=== PATIENT | female | born 1960 | race Caucasian/White ===

== ENCOUNTER → 2020-10-16 08:27 | Outpatient (BNVA) | payer SELFPAY | PROVIDERS: PCP Registered Nurse; Visit Provider Registered Nurse | DX: R19.7 Diarrhea, unspecified (principal) | CPT/HCPCS: 87493; 87506 ==

== ENCOUNTER 2024-07-26 07:06 | Emergency (ER) | payer OTHER, SELFPAY ==
[2024-07-26 07:24] VITALS: BP 123/79; PULSE 66; RESP 16; TEMP 36.7; O2SAT 98; BMI 21.4
--- NOTE | 2024-07-26 07:33 | ED_ITS ---
HPI - General Adult 2 General: Chief complaint: Skin/Abscess/Foreign Body Stated complaint: swelling/rash face area Time Seen by Provider: 07/26/24 07:08 History of Present Illness: 64 yo female present to the ER with comp laints of facial swelling and rash Associated symptoms: Reports rash; Deny chest pain or dyspnea Related Data Home Medications ?Medication ?Instructions ?Recorded ?Confirmed hydroxyzine HCl 10 mg tablet 10 mg PO Q6H 07/26/24 Previous Rx's ?Medication ?Instructions ?Recorded clindamycin HCl 150 mg capsule 450 mg (3 x 150 mg) PO TID 7 days 07/26/24 #63 caps metronidazole 1 % topical gel 1 applic topical DAILY # 60 grams 07/26/24 Allergies Allergy/AdvReac Type Severity Reaction Status Date / Time No Known Allergies Allergy Verified 07/26/24 07:38 Review of Systems 2 Const: Denies: fever(s) or chills Card: Denies: chest pain Resp: Denies: dyspnea GI: Denies: abdominal pain : Denies: dysuria, urinary frequency or urinary urgency Musc: Denies: neck pain or back pain Skin/Breast: Reports: rash PFSH ED 2 PFSH: Social History Smoking and tobacco/nicotine status: never used tobacco/nicotine Alcohol intake: never Physical Exam 2 Const: GENERAL APPEARANCE: cooperative ORIENTATION/CONSCIOUSNESS: Yes awake, Yes oriented to person, Yes oriented to place and Yes oriented to time HENMT: COMMON NORMALS: normocephalic, atraumatic and hearing grossly normal bilaterally HEAD & SCALP: normocephalic and atraumatic Resp: COMMON NORMALS: normal respiratory effort, No retractions, No use of accessory muscles and clear to auscultation bilaterally AUSCULTATION: clear to auscultation bilaterally Cardio: COMMON NORMALS: regular rate, regular rhythm and No murmurs present (Cardio) RATE: regular rate RHYTHM: regular rhythm Extremity: COMMON NORMALS: normal to inspection, capillary refill normal, no clubbing, cyanosis or edema, no calf tenderness and no pedal edema Neuro: SENSORIUM/ORIENTATION: Yes oriented to person, Yes oriented to place and Yes oriented to time Skin: OTHER: Mild erythema and thickening slight swelling of the skin overlying the mandible that extends into the submandibular space and into the anterior portion of the neck no cervical lymphadenopathy there is normal fluctuant areas no palpable nodules no skin breakdown or drainage. Course 2 Vital Signs: Vital signs: Vital Signs Temperature 98.1 F 07/26/24 07:24 Pulse Rate 66 07/26/24 07:24 Respiratory Rate 16 07/26/24 07:24 Blood Pressure 123/79 07/26/24 07:24 Pulse Oximetry 98 07/26/24 07:24 Oxygen Delivery Me thod Room Air 07/26/24 07:24 MDM - General Adult Medical Decision Making Appears to have erysipelas does not have the typical appearance of rosacea. Patient did mention she had it previously. She has no central component and only covers the area of the chin and is spreading down the neck. No signs of any drainage anywhere will start on clindamycin 450 mg 3 times daily for 5 days also have her apply topical metronidazole if not improving follow-up with her primary care doctor may need referral to Derm. She previously was on Augmentin which I do not think likely had adequate coverage. Medical Records I reviewed the patient's medical records. Lab Data I reviewed the patient's lab results. 07/26/24 08:18 07/26/24 08:18 Laboratory Results WBC 9.62 10^3/uL (3.29-11.43) 07/26/24 08:18 RBC 4.36 10^6/uL (3.85-5.65) 07/26/24 08:18 Hgb 13.20 g/dL (11.27-16.99) 07/26/24 08:18 Hct 40.6 % (36-47) 07/26/24 08:18 MCV 93.1 fl (85-98) 07/26/24 08:18 MCH 30.3 pg (27-33) 07/26/24 08:18 MCHC 32.5 g/dL (30-55) 07/26/24 08:18 RDW 13.1 % (12.1-15.1) 07/26/24 08:18 Plt Count 316 10^3/cmm (157-399) 07/26/24 08:18 MPV 10.2 fL (7.4-10.4) 07/26/24 08:18 Neut % (Auto) 60.2 % 07/26/24 08:18 Lymph % (Auto) 26.6 % 07/26/24 08:18 [place] % (Auto) 6.5 % 07/26/24 08:18 Eos % (Auto) 5.5 % 07/26/24 08:18 Baso % (Auto) 0.5 % 07/26/24 08:18 Neut # (Auto) 5.78 10^3/uL (1.8-7.7) 07/26/24 08:18 Lymph # (Auto) 2.6 10^3/uL (0.8-4.8) 07/26/24 08:18 [place] # (Auto) 0.6 10^3/uL (0.2-0.9) 07/26/24 08:18 Eos # (Auto) 0.5 10^3/uL (0.0-0.8) 07/26/24 08:18 Baso # (Auto) 0.1 10^3/uL (0.0-0.1) 07/26/24 08:18 Nucleated RBC % (auto) 0 % 07/26/24 08:18 Nucleated RBCs # 0.0 /100WBC 07/26/24 08:18 Sodium 139 mmol/L (136-145) 07/26/24 08:18 Potassium 4.4 mmol/L (3.5-5.1) 07/26/24 08:18 Chloride 102 mmol/L (98-107) 07/26/24 08:18 Carbon Dioxide 25 mmol/L (22-29) 07/26/24 08:18 Anion Gap 16.4 (5-19) 07/26/24 08:18 BUN 22 mg/dL (8-23) 07/26/24 08:18 Creatinine 0.5 mg/dL (0.5-0.9) 07/26/24 08:18 GFR Calculation 124.2 mL/min (90-130) 07/26/24 08:18 Glucose 91 mg/dL (65-115) 07/26/24 08:18 Calculated Osmolality 291 mOsm/kg (285-295) 07/26/24 08:18 Calcium 9.5 mg/dL (8.5-10.5) 07/26/24 08:18 Total Bilirubin 0.3 mg/dL (0.15-1.2) 07/26/24 08:18 AST 17 U/L (0-32) 07/26/24 08:18 ALT 23 U/L (0-33) 07/26/24 08:18 Alkaline Phosphatase 65 U/L (35-105) 07/26/24 08:18 Total Protein 6.9 g/dL (6.6-8.7) 07/26/24 08:18 Albumin 4.3 g/dL (3.5-5.2) 07/26/24 08:18 Globulin 2.6 g/dL (1.3-4.6) 07/26/24 08:18 No radiology studies performed this visit Discharge Plan Discharge Patient Disposition: Home Clinical Impression: Erysipelas Condition: Stable Prescriptions: New clindamycin HCl 150 mg capsule 450 mg PO TID 7 Days Qty: 63 0RF metronidazole 1 % gel 1 applic topical DAILY Qty: 60 0RF No Action hydroxyzine HCl 10 mg tablet 10 mg PO Q6H Discharge Orders: Discharge ED (Routine); Ordered 07/26/24 Ordered By: Nicko Hammer Referrals: Nilam Tyler FNP [Primary Care Provider] - Patient Instructions: Opioid Safety, Pain Management Activity Restrictions/Additional Instructions: Thank you for choosing [facility] for your healthcare needs today. It is very important that you follow up as instructed or that you return to the Emergency Department should you have concerns or if your condition changes or worsens in any way. Print Language: Eritrean Coding Level of Care Code ED Front Office Developer for Ledy Cornell
[2024-07-26 08:35] LABS: Basophils # 0.1 10^3/uL (0.0-0.1); Basophils % 0.5 %; Eosinophils # 0.5 10^3/uL (0.0-0.8); Eosinophils % 5.5 %; Hematocrit 40.6 % (36-47); Lymphocytes # 2.6 10^3/uL (0.8-4.8); Lymphocytes % 26.6 %; Mean Corpuscular HGB Conc 32.5 g/dL (30-55); Mean Corpuscular Hemoglobin 30.3 pg (27-33); Mean Corpuscular Volume 93.1 fl (85-98); Mean Platelet Volume 10.2 fL (7.4-10.4); Monocytes # 0.6 10^3/uL (0.2-0.9); Monocytes % 6.5 %; Neutrophils # 5.78 10^3/uL (1.8-7.7); Neutrophils % 60.2 %; Nucleated Red Blood Cells % 0 %; Platelet Count 316 10^3/cmm (157-399); Red Blood Count 4.36 10^6/uL (3.85-5.65); Red Cell Distribution Width 13.1 % (12.1-15.1); White Blood Count 9.62 10^3/uL (3.29-11.43)
[2024-07-26 08:48] LABS: Alanine Aminotransferase 23 U/L (0-33); Albumin Level 4.3 g/dL (3.5-5.2); Alkaline Phosphatase 65 U/L (35-105); Anion Gap 16.4 (5-19); Aspartate Amino Transferase 17 U/L (0-32); Blood Urea Nitrogen 22 mg/dL (8-23); Calcium 9.5 mg/dL (8.5-10.5); Carbon Dioxide 25 mmol/L (22-29); Chloride 102 mmol/L (98-107); Creatinine Clr Calc Pharmacy 88.9061; Globulin 2.6 g/dL (1.3-4.6); Glomerular Filtration Rate 124.2 mL/min (90-130); Glucose 91 mg/dL (65-115); Osmolality Calculated 291 mOsm/kg (285-295); Potassium 4.4 mmol/L (3.5-5.1); Sodium 139 mmol/L (136-145); Total Bilirubin 0.3 mg/dL (0.15-1.2); Total Protein 6.9 g/dL (6.6-8.7)
[2024-07-26 09:22] VITALS: BP 123/73; PULSE 72; O2SAT 95
== END 2024-07-26 09:23 | disposition home or self-care (01) ==
PROVIDERS: Emergency Provider Family Medicine; PCP Registered Nurse
DX: A46 Erysipelas (principal)
CPT/HCPCS: 36415; 80053; 85025; 87040; 99283

== ENCOUNTER → 2024-10-29 10:36 | Outpatient (BNVA) | payer OTHER, SELFPAY | PROVIDERS: PCP Registered Nurse; Visit Provider Nurse Practitioner Family | DX: T78.3XXD Angioneurotic edema, subsequent encounter (principal); X58.XXXD Exposure to other specified factors, subsequent encounter | CPT/HCPCS: 86003; 86008; 87070 ==